=== PATIENT | female | born 1960 | race Two or more races ===

== ENCOUNTER 2019-12-10 22:19 | Emergency (ER) | payer BC ==
[~2019-12-10] VITALS: Ht 162.6 cm; Wt 72.7 kg
[2019-12-10] MEDS ORDERED: dexamethasone 4mg tablet PO ONE (22:40)
[2019-12-10] MEDS ORDERED: EPIN0.3P3 IM (23:38)
[2019-12-10 23:54] VITALS: BP 134/92
== END 2019-12-10 23:55 | disposition home or self-care (01) ==
LOC: ER 22:19
DX: T78.49XA Other allergy, initial encounter (principal); Z88.8 Allergy status to other drugs, medicaments and biological substances; Z79.899 Other long term (current) drug therapy; X58.XXXA Exposure to other specified factors, initial encounter
CPT/HCPCS: 99283